=== PATIENT | female | born 1960 | race Caucasian/White ===

== ENCOUNTER → 2020-08-29 09:54 | Outpatient (BNVA) | payer BC, SELFPAY | PROVIDERS: PCP Internal Medicine; Referring Provider Internal Medicine; Visit Provider Internal Medicine Endocrinology, Diabetes & Metabolism | DX: Z76.89 Persons encountering health services in other specified circumstances (principal) ==

== ENCOUNTER 2020-08-29 11:11 | Outpatient (REF) | payer BC, SELFPAY ==
[2020-08-29 15:00] LABS: Free T4 (Free Thyroxine) 1.18 ng/dL (0.71-1.85); Vitamin D 25-OH Total 25.3 ng/mL (>30)
== END 2020-08-29 11:12 | disposition home or self-care (01) ==
LOC: HO.10HDL 11:11
PROVIDERS: Visit Provider Internal Medicine Endocrinology, Diabetes & Metabolism
DX: E89.0 Postprocedural hypothyroidism (principal)
CPT/HCPCS: 82306; 84439; 84443

== ENCOUNTER 2020-09-01 09:56 | Outpatient (REF) | payer BC, SELFPAY ==
--- NOTE | 2020-09-01 10:00 | US_ITS ---
EXAMINATION: US THYROID CLINICAL INFORMATION: Hypothyroidism. COMPARISON: None. TECHNIQUE: Linear transducer ibarra-scale and color Doppler examination with attention to the region of the thyroid. FINDINGS: SIZE: Measurements of the thyroid lobes and nodules are given in sagittal, anteroposterior and transverse dimensions respectively. Right Thyroid Lobe: 2.5 x 0.58 x 0.55 cm, volume 0.41 mL. Parenchyma: The gland echotexture is homogeneous. Thyroid vascularity is normal. Left Thyroid Lobe: 1.91 x 1.53 x 0.78 cm, volume 0.41 mL. Parenchyma: The gland echotexture is homogeneous. Thyroid vascularity is normal. Isthmus: 0.24 cm in maximum AP dimension. RIGHT THYROID LOBE: No nodules. ISTHMUS: No nodules. LEFT THYROID LOBE: No nodules. NODES: No lymphadenopathy is seen in the tissue surrounding the thyroid gland. US/US thyroid IMPRESSION: Small bilateral thyroid gland with no nodules identified.
== END 2020-09-01 09:57 | disposition home or self-care (01) ==
LOC: HO.HMGCX 09:56
PROVIDERS: PCP Internal Medicine; Visit Provider Internal Medicine Endocrinology, Diabetes & Metabolism
DX: E89.0 Postprocedural hypothyroidism (principal)
CPT/HCPCS: 76536

== ENCOUNTER 2020-10-06 09:37 | Outpatient (REF) | payer BC, SELFPAY ==
--- NOTE | 2020-10-06 09:40 | CT_ITS ---
EXAMINATION: CT SOFT TISSUE NECK WITHOUT CONTRAST CLINICAL INFORMATION: Postprocedural hypothyroidism. COMPARISON: None TECHNIQUE: Helical imaging was performed in the axial plane with generation of coronal and sagittal reformatted images. This CT examination was performed using dose optimization techniques as appropriate, variously including the following: *Automated exposure control *Adjustment of mA and/or kV according to patient size (this includes techniques or standardized protocols for targeted exams where dose is matched to indication/reason for exam; i.e. extremities or head) *Use of iterative reconstruction technique DLP: 301 mGy-cm FINDINGS: No cervical adenopathy is identified. The parotid glands are homogeneous in attenuation. The submandibular glands are normal. No contour abnormality or pathologic enhancement is seen within the oral cavity or pharyngeal mucosal space. The laryngeal structures are normal. The parapharyngeal fat is preserved. The carotid sheath vasculature opacify normally. No extramucosal soft tissue mass or fluid collection is seen. No retropharyngeal fluid collection is seen. Small bilateral thyroid lobes are seen. The superior mediastinum is unremarkable. The lung apices are clear. The mastoid air cells and visualized portions of the paranasal sinuses are well aerated. The temporomandibular joints are normal. No periapical disease is identified. No osseous abnormalities are seen. The imaged portions of the brain parenchyma are unremarkable. CT/CT soft tissue neck wo con IMPRESSION: Unremarkable CT soft tissue neck.
== END 2020-10-06 09:38 | disposition home or self-care (01) ==
LOC: HO.CT 09:37
PROVIDERS: PCP Internal Medicine; Visit Provider Internal Medicine Endocrinology, Diabetes & Metabolism
DX: E89.0 Postprocedural hypothyroidism (principal)
CPT/HCPCS: 70490

== ENCOUNTER → 2021-05-26 13:47 | Outpatient (BNVA) | payer OTHER, SELFPAY | PROVIDERS: PCP Internal Medicine; Visit Provider Physician Assistant Medical | DX: S33.9XXA Sprain of unspecified parts of lumbar spine and pelvis, initial encounter (principal); X50.0XXA Overexertion from strenuous movement or load, initial encounter; M54.17 Radiculopathy, lumbosacral region | CPT/HCPCS: 99203 ==

== ENCOUNTER → 2021-05-29 11:01 | Outpatient (BNVA) | payer OTHER, SELFPAY | PROVIDERS: PCP Internal Medicine; Visit Provider Physician Assistant | DX: S33.9XXA Sprain of unspecified parts of lumbar spine and pelvis, initial encounter (principal); X58.XXXA Exposure to other specified factors, initial encounter | CPT/HCPCS: 99213 ==

== ENCOUNTER → 2021-06-02 10:38 | Outpatient (BNVA) | payer OTHER, SELFPAY | PROVIDERS: PCP Internal Medicine; Visit Provider Physician Assistant Medical | DX: S33.9XXA Sprain of unspecified parts of lumbar spine and pelvis, initial encounter (principal); X58.XXXA Exposure to other specified factors, initial encounter | CPT/HCPCS: 99213 ==

== ENCOUNTER → 2021-06-16 09:40 | Outpatient (BNVA) | payer OTHER, SELFPAY | PROVIDERS: PCP Internal Medicine; Visit Provider Physician Assistant Medical | DX: S33.9XXD Sprain of unspecified parts of lumbar spine and pelvis, subsequent encounter (principal); X58.XXXD Exposure to other specified factors, subsequent encounter | CPT/HCPCS: 99213 ==

== ENCOUNTER → 2021-06-30 10:38 | Outpatient (BNVA) | payer OTHER, SELFPAY | PROVIDERS: PCP Internal Medicine; Visit Provider Physician Assistant Medical | DX: S33.9XXD Sprain of unspecified parts of lumbar spine and pelvis, subsequent encounter (principal); X58.XXXD Exposure to other specified factors, subsequent encounter | CPT/HCPCS: 72110; 72200; 99214 ==

== ENCOUNTER → 2021-07-12 11:03 | Outpatient (BNVA) | payer OTHER, SELFPAY | PROVIDERS: PCP Internal Medicine; Visit Provider Physician Assistant Medical | DX: S33.9XXD Sprain of unspecified parts of lumbar spine and pelvis, subsequent encounter (principal); X58.XXXD Exposure to other specified factors, subsequent encounter | CPT/HCPCS: 99213 ==

== ENCOUNTER → 2021-07-26 10:53 | Outpatient (BNVA) | payer OTHER, SELFPAY | PROVIDERS: PCP Internal Medicine; Visit Provider Physician Assistant Medical | DX: M46.1 Sacroiliitis, not elsewhere classified (principal); S33.9XXD Sprain of unspecified parts of lumbar spine and pelvis, subsequent encounter; X58.XXXD Exposure to other specified factors, subsequent encounter | CPT/HCPCS: 99213 ==

== ENCOUNTER 2021-08-02 09:34 | Outpatient (REF) | payer OTHER, SELFPAY ==
--- NOTE | ~2021-08-02 | MR_ITS ---
EXAMINATION: MR LUMBAR SPINE WITHOUT CONTRAST CLINICAL INFORMATION: Strain of muscle. Right-sided down radicular. COMPARISON: None TECHNIQUE: MRI of the lumbar spine was obtained using routine sequences without contrast. FINDINGS: The lumbar vertebral bodies maintain normal heights. There is mild retrolisthesis of T12 on L1, L1 on L2, and L3 on L4. Disc height loss appears moderate to severe T11-T12, T12-L1, and L5-S1. Marrow edema compatible stress response is seen within the right L5 and to lesser extent right L4 pedicle. Prominent hemangiomata are seen in the T10, T12, and L1 vertebral bodies. The distal spinal cord appears normal. The conus medullaris terminates normally at the L2 level. The abdominal aorta is top normal in size measuring 2.9 cm. The extraspinal soft tissues are otherwise within normal limits. SPINAL LEVELS: L1-L2: Disc bulging. No spinal canal or neural foraminal stenosis. L2-L3: Disc bulging. No spinal canal or neural foraminal stenosis. L3-L4: Disc bulging with ligamentum flavum infolding mild facet arthropathy resulting in mild spinal canal stenosis with right subarticular stenosis and mild to moderate right more than left neural foraminal stenosis. L4-L5: Disc bulging with ligamentum flavum infolding and severe facet arthropathy resulting in mild to moderate spinal canal stenosis with bilateral subarticular stenosis and mild to moderate left and moderate right neural foraminal stenosis. L5-S1: Disc bulging with moderate left and mild right facet arthropathy. Moderate to severe left and moderate right neural foraminal stenosis. MR/MR lumbar spine wo con IMPRESSION: Moderate multilevel degenerative spondylotic changes resulting in varying degrees of spinal canal, subarticular, and neural foraminal stenosis. Spinal canal stenosis appears mild to moderate L3-L4 and L4-L5. Neural foraminal stenosis is moderate to severe on the left and moderate on the right at L5-S1.
== END 2021-08-02 09:35 | disposition home or self-care (01) ==
LOC: HO.MRI 09:34
PROVIDERS: Visit Provider Internal Medicine
DX: M54.16 Radiculopathy, lumbar region (principal)
CPT/HCPCS: 72148

== ENCOUNTER → 2021-08-09 10:17 | Outpatient (BNVA) | payer OTHER, SELFPAY | PROVIDERS: PCP Internal Medicine; Visit Provider Physician Assistant Medical | DX: M46.1 Sacroiliitis, not elsewhere classified (principal); M47.816 Spondylosis without myelopathy or radiculopathy, lumbar region; M48.061 Spinal stenosis, lumbar region without neurogenic claudication | CPT/HCPCS: 99213 ==

== ENCOUNTER 2021-08-17 10:00 | Outpatient (RCR) | payer OTHER, BC, SELFPAY ==
--- NOTE | 2021-06-14 12:52 | MHC.PT.EP ---
[facility] [place] Office [place] Office [place] Office [address] Fabian Webster [address] [phone] F: [phone] F: [phone] F: [phone] F: [phone] Physical Therapy Plan of Care Date of Evaluation: Date of Surgery: n/a Diagnosis: lumbar/sacral strain Assessment: Patient is a 61 year old R handed female who presents with s/s consistent with R SIJ pain, lumbar pain. She works with daily job demands including sitting and turning, lifting. Patient past medical history includes asthma, anxiety, CAD. Current impairments include pain, ROM, strength, safety, independence, activity tolerance and functional mobility. Functional limitations include decreased ability to walk, stand, transfer, negotiate stairs, and perform weight bearing activities.. Patient is motivated with good rehab potential. Skilled PT will address impairments and functional limitations in order to achieve goals. Frequency and Duration: The patient will be seen 2x/week for 5 weeks Short Term Goals: I with HEP - 2 weeks Restore normal gait mechanics and symmetrical innom - 2 weeks TTP absent at R PSIS - 3 weeks Finishing Inspector Goals: Oswestry 16% or less - 5 weeks Restore pain free PLOF - 5 weeks Safe return to full duty - 5 weeks Treatment Plan: Modalities to reduce pain, spasms and effusion. Manual therapy to restore motion and function. Therapeutic exercise to improve strength and flexibility. Neuromuscular re-education for posture and balance. Therapeutic activities to return to functional activities of daily living. Electronically signed by: Ken Onofre PT Please sign and return to therapist. Thank you for your referral.
--- NOTE | 2021-10-11 13:32 | MHC.PT.DC ---
[facility] [place] Office [place] Office [place] Office [address] Fabian Webster [address] [phone] F: [phone] F: [phone] F: [phone] F: [phone] Physical Therapy Discharge Report Diagnosis: lumbar/sacral strain Date of Surgery: n/a Date of Evaluation: 06/14/21 Date of Discharge: 08/27/21 Treatments to Date: 16 Cancellations to Date: 0 No Shows to Date: 0 Discharge Status: Independent with HEP Discharge Summary: Pt progressed well but still with some residual s/s including pinching and burning. Improved flexibility and awareness of body mechanics, improved strength. She is I with updated HEP and appropriate for d/c to HEP at this time. Will be following up with pain management and specialist. Electronically signed by: Ken Onofre, PT Please sign and return to therapist. Thank you for your referral.
== END 2021-10-11 13:32 | disposition home or self-care (01) ==
LOC: HO.PTCHIC 10:00
PROVIDERS: PCP Internal Medicine; Visit Provider Physician Assistant Medical
DX: S39.012D Strain of muscle, fascia and tendon of lower back, subsequent encounter (principal); M62.830 Muscle spasm of back
CPT/HCPCS: 97110; 97140; 97162; 97530

== ENCOUNTER → 2021-09-06 10:06 | Outpatient (BNVA) | payer OTHER, SELFPAY | PROVIDERS: PCP Internal Medicine; Visit Provider Physician Assistant Medical | DX: M48.08 Spinal stenosis, sacral and sacrococcygeal region (principal) | CPT/HCPCS: 99213 ==

== ENCOUNTER → 2021-10-04 10:13 | Outpatient (BNVA) | payer OTHER, SELFPAY | PROVIDERS: PCP Internal Medicine; Visit Provider Physician Assistant Medical | DX: M47.816 Spondylosis without myelopathy or radiculopathy, lumbar region (principal); M46.1 Sacroiliitis, not elsewhere classified | CPT/HCPCS: 99213 ==

== ENCOUNTER → 2021-10-11 11:00 | Outpatient (BNVA) | payer BC, SELFPAY | PROVIDERS: PCP Internal Medicine; Visit Provider Nurse Practitioner Gerontology ==

== ENCOUNTER 2021-10-21 09:48 | Outpatient (REF) | payer BC, SELFPAY ==
[2021-10-21 11:16] LABS: Alanine Aminotransferase 14 U/L (0-31); Albumin Level 4.2 g/dL (3.5-5.0); Alkaline Phosphatase 103 U/L (39-117); Anion Gap 13 (12-20); Aspartate Amino Transferase 14 U/L (5-31); Bilirubin Total 0.4 mg/dL (0.0-1.0); Blood Urea Nitrogen 15 mg/dL (9-16); Calcium 8.9 mg/dL (8.4-10.2); Carbon Dioxide 25 mmol/L (22-29); Chloride 107 mmol/L (96-108); Cholesterol 263 mg/dL; Estimated Glomerular Filt Rate 49; Glucose Random 92 mg/dL (60-115); HDL Cholesterol 48 mg/dL; LDL Cholesterol Calculated 176 mg/dl; Potassium 4.4 mmol/L (3.3-5.1); Sodium 141 mmol/L (135-145); Total Protein 6.7 g/dL (6.5-8.0); Triglycerides 197 mg/dL
[2021-10-21 11:57] LABS: Free T4 (Free Thyroxine) 1.19 ng/dL (0.71-1.85); Thyroid Stimulating Hormone 4.49 uIU/mL (0.32-4.0); Vitamin D 25-OH Total 24.2 ng/mL (>30)
== END 2021-10-21 09:49 | disposition home or self-care (01) ==
LOC: HO.LAB 09:48
PROVIDERS: Absent Provider Physician Assistant; PCP Internal Medicine; Visit Provider Nurse Practitioner Gerontology
DX: E55.9 Vitamin D deficiency, unspecified (principal); E89.0 Postprocedural hypothyroidism; I25.5 Ischemic cardiomyopathy; E78.2 Mixed hyperlipidemia
CPT/HCPCS: 36415; 80053; 80061; 82306; 84439; 84443

== ENCOUNTER 2025-04-16 09:30 | Emergency (ER) | payer MEDICARE, SELFPAY ==
[2025-04-16 09:57] VITALS: BP 122/83; PULSE 83; RESP 18; TEMP 36.3; O2SAT 94; BMI 29.1
--- NOTE | 2025-04-16 10:00 | ED.SKABFB ---
HPI - Skin/Abscess/Foreign Bdy General Chief complaint: Animal Bite Stated complaint: Infected tick bite Time Seen by Provider: 04/16/25 10:29 Source: patient Mode of arrival: ambulatory Limitations: no limitations History of Present Illness ED Provider: HPI narrative: 65-year-old woman, history of smoking, COPD, hypothyroidism, presenting with tick bite on her left posterior forearm, she states it was itchy she picked at it inadvertently about 3 weeks ago, it was only attached the tick was for few hours, she developed a blister like and some redness no fevers or chills, she is also requesting her medications levothyroxine and a statin to be represcribed, she states she is not able to obtain a PCP, and these were prescribed at [facility] last time she took them was 6 months ago. Her brother as at bedside and states that is helping her manage her care at this time. Related Data Home Medications ?Medication ?Instructions ?Recorded ?Confirmed aspirin 81 mg tablet,delayed 81 mg PO DAILY 08/29/20 10/25/20 release (Adult Aspirin Regimen) atorvastatin 80 mg tablet 80 mg PO DAILY 08/29/20 10/25/20 loratadine 10 mg tablet 10 mg PO DAILY 08/29/20 10/25/20 metoprolol succinate 25 mg 25 mg PO DAILY 08/29/20 10/25/20 tablet,extended release 24 hr pantoprazole 40 mg tablet,delayed 40 mg PO DAILY 10/25/20 10/25/20 release (Protonix) Previous Rx's ?Medication ?Instructions ?Recorded cholecalciferol (vitamin D3) 50 50 mcg PO DAILY 90 days #90 caps 08/29/20 mcg (2,000 unit) capsule levothyroxine 100 mcg tablet 100 mcg PO DAILY #90 tabs 10/24/21 atorvastatin 80 mg tablet 80 mg PO BEDTIME #30 tabs 04/16/25 doxycycline hyclate 100 mg capsule 100 mg PO BID 14 days #28 caps 04/16/25 levothyroxine 100 mcg capsule 100 mcg PO DAILY 30 days #30 caps 04/16/25 Allergies Allergy/AdvReac Type Severity Reaction Status Date / Time mushroom Allergy Mild RASH/HIVES Unverified 04/16/25 09:59 mushrooms Allergy Unknown rash Uncoded 04/16/25 09:59 mushroom AdvReac Unknown rash Uncoded 04/16/25 09:59 Review of Systems Constitutional: Constitutional: Reports as per HPI [facility] Past Medical History Medical History Postablative hypothyroidism Vitamin D deficiency Surgical History Hx of tubal ligation Family History Family History Father Hyperlipidemia Mother Throat cancer Hyperlipidemia Liver disease Sister Breast cancer Uterine cancer Bone cancer Lung disease Asthma Social History Social History Household Members: Spouse Alcohol intake: former Patient Tobacco Use Status: Current everyday Tobacco user Cigarettes Per Day: 10 Years Smoked: approx 40 years Physical Exam Vital Signs: Vital Signs: Last Vital Signs Temp 97.4 F 04/16/25 09:57 Pulse 83 04/16/25 09:57 Resp 18 04/16/25 09:57 BP 122/83 04/16/25 09:57 Pulse Ox 94 04/16/25 09:57 O2 Del Method Room Air 04/16/25 09:57 BMI result Body Mass Index 29.1 Const: Other: Please see picture of forearm attached, Full range of motion of shoulder, elbow, wrist, its dime-sized area with surrounding erythema Patient is otherwise alert and oriented x4 speaking full sentences no audible wheezing, stridor Course Course Course Narrative: 04/16/25 1000 SAKINA Rivera This is a Rapid Medical Examination (RME) performed by Michael Hooks PA-C in triage. Full HPI, ROS, assessment and treatment plan per primary provider in the Main ED. Hx: 65 yo F hx COPD here for eval of infected tick bite to L elbow. reports pulling a tick off of this area x3 wks ago. unclear how long the tick was attached or if it was engorged. reports increased swelling/redness to the area starting a few days ago. no systemic symptoms. PE/vitals: no bullseye/target lesions. Plan: screening labs, lyme/tick testing Medical Decision Making Medical Decision Making MDM Narrative: I tried to do blister of the area to see if there is any collection of pus underneath the eschar, cleaned the area with alcohol and use 18 gauge needle, it is probably coagulated blood no pus came out, I will start her on antibiotics, and refill her medications, her brothers at bedside, he states they are helping her get access to the healthcare at this time. She is not having any other concerns. Differential Diagnosis Differential Diagnoses: The differential diagnosis associated with the presentation includes Discharge Plan Discharge Clinical Impression: Tick bite, Medication refill Patient Disposition: Home, Self-Care Additional Instructions: I refilled your medications, you need to have a primary care physician to continue prescribing these medications unfortunately as I have discussed with the or, I am also going to start her on antibiotics, doxycycline 100 mg twice a day for the next 2 weeks, be very mindful going out in the sun you need to have some block or your skin covered because it is very easy to get a sunburn while taking doxycycline, I recommend quitting smoking as well. Any other issues or concerns fevers chills swelling of the joints come back to the ER. Prescriptions: New doxycycline hyclate 100 mg capsule 100 mg PO BID 14 Days Qty: 28 0RF levothyroxine 100 mcg capsule 100 mcg PO DAILY 30 Days Qty: 30 0RF atorvastatin 80 mg tablet 80 mg PO BEDTIME Qty: 30 0RF No Action levothyroxine 100 mcg tablet 100 mcg PO DAILY Qty: 90 3RF pantoprazole [Protonix] 40 mg tablet,delayed release (DR/EC) 40 mg PO DAILY atorvastatin 80 mg tablet 80 mg PO DAILY metoprolol succinate 25 mg tablet extended release 24 hr 25 mg PO DAILY loratadine 10 mg tablet 10 mg PO DAILY aspirin [Adult Aspirin Regimen] 81 mg tablet,delayed release (DR/EC) 81 mg PO DAILY cholecalciferol (vitamin D3) 50 mcg (2,000 unit) capsule 50 mcg PO DAILY 90 Days Qty: 90 3RF Print Language: Vincentian
[2025-04-16 11:11] VITALS: BP 127/80; PULSE 79; RESP 12; TEMP 36.9; O2SAT 94
[2025-04-16 11:24] VITALS: BP 127/80; PULSE 79; RESP 12; TEMP 36.9; O2SAT 94
== END 2025-04-16 11:36 | disposition home or self-care (01) ==
PROVIDERS: Emergency Provider Emergency Medicine
DX: S40.862A Insect bite (nonvenomous) of left upper arm, initial encounter (principal); W57.XXXA Bitten or stung by nonvenomous insect and other nonvenomous arthropods, initial encounter; Y93.9 Activity, unspecified; Y92.9 Unspecified place or not applicable; Y99.9 Unspecified external cause status; L29.9 Pruritus, unspecified
CPT/HCPCS: 99283